=== PATIENT | male | born 1970 | race Two or more races ===

== ENCOUNTER → 2019-08-28 | Emergency (ER) | payer MEDICAID ==
[~2019-08-28] VITALS: Ht 170.2 cm; Wt 81.6 kg
[~2019-08-28] MED LIST: traMADol HCL 50 MG TAB PO ONE
[2019-08-28 11:03] VITALS: BP 123/74
== END | disposition home or self-care (01) ==
LOC: ER 10:28
DX: S43.101A Unspecified dislocation of right acromioclavicular joint, initial encounter (principal); E78.5 Hyperlipidemia, unspecified; X58.XXXA Exposure to other specified factors, initial encounter; Y93.89 Activity, other specified; Y92.89 Other specified places as the place of occurrence of the external cause; Y99.8 Other external cause status
CPT/HCPCS: 29105